=== PATIENT | female | born 1955 | race Caucasian/White ===

== ENCOUNTER 2022-11-12 12:57 | Emergency (ER) | payer MEDICARE, OTHER ==
[2022-11-12] MEDS ORDERED: Diphtheria,Pertussis(Acell),Tetanus Vaccine 0.5 ML Syringe IM ONE (13:12)
[2022-11-12] MEDS ORDERED: Bacitracin Oint 1 GM U/D Packet TOP ONE (13:12)
[2022-11-12] MEDS ORDERED: Lidocaine 1% 5 ML VIAL INJECT ONE (13:12)
== END 2022-11-12 14:50 | disposition home or self-care (01) ==
LOC: DL.ED 12:57
DX: S61.210A Laceration without foreign body of right index finger without damage to nail, initial encounter (principal); Z23 Encounter for immunization; W26.8XXA Contact with other sharp object(s), not elsewhere classified, initial encounter
CPT/HCPCS: 12002; 73140; 90471; 90715; 99282; 99283; A9270; J3490